=== PATIENT | female | born 1975 | race Two or more races ===

== ENCOUNTER 2023-03-12 05:30 | Day surgery (SDC) | payer OTHER ==
[~2023-03-12] VITALS: Ht 154.9 cm; Wt 47.6 kg
[~2023-03-12 05:30] MED LIST: CELEXA20 MG PO; CLONAZEPAM0.5 MG PO; COZAAR50 MG PO; LEVOTHYROXINE25 MCG PO; PLAQUENIL PO
[2023-03-12] MEDS ORDERED: MONDOXYNE NL100 MG PO (08:27)
== END 2023-03-12 12:20 | disposition home or self-care (01) ==
LOC: CIR.AMB 05:30 → U 05:30 → CIR.AMB 07:00
PROVIDERS: ATTEND Obstetrics & Gynecology
DX: N84.0 Polyp of corpus uteri (principal); N92.0 Excessive and frequent menstruation with regular cycle; D25.9 Leiomyoma of uterus, unspecified; Z20.822 Contact with and (suspected) exposure to COVID-19